=== PATIENT | male | born 1995 | race Hispanic/Latino ===

== ENCOUNTER 2022-01-16 08:21 | Emergency (ER) | payer BC, SELFPAY ==
--- NOTE | 2022-01-16 08:33 | ED.EXTPRO ---
HPI - Extremity Problem General Chief complaint: Unspecified Stated complaint: Left Arm Pain Time Seen by Provider: 01/16/22 08:33 Source: patient, RN notes reviewed and old records reviewed Mode of arrival: ambulatory Limitations: no limitations History of Present Illness HPI Narrative: 26-year-old male presents to the [facility] with left axilla discomfort for several weeks. Patient reports swelling. No redness. No streaking. Denies fevers. Related Data Allergies Allergy/AdvReac Type Severity Reaction Status Date / Time No Known Allergies Allergy Verified 01/16/22 08:25 Review of Systems Review of Systems: All systems reviewed & are unremarkable except as noted in HPI and below Constitutional: Constitutional: Reports no additional constitutional complaints, Denies chills and Denies fever(s) Eyes: Eyes: Reports no additional eye complaints ENT: Reports system reviewed and no additional complaints, except as documented Cardiovascular: Cardiovascular: Reports no additional cardiovascular complaints Respiratory: Respiratory: Reports no additional respiratory complaints Gastrointestinal: Gastrointestinal: Reports no additional gastrointestinal complaints Musculoskeletal: Musculoskeletal: Reports no additional musculoskeletal complaints Integumentary/Breasts: Skin/Breast: Reports as per HPI Neurologic: Reports system reviewed and no additional complaints, except as documented Psychiatric: Psychiatric: Reports no additional psychiatric complaints Allergic/Immunologic: Allergic/Immunologic: Reports no additional allergic/immunologic complaints PMFSH Comments At the time of my signature, I reviewed and agree with the nursing past medical, surgical, social, and family history. There is no relevant family history pertinent to the patient complaint. Exam Const: General: healthy appearing, no acute distress and alert Nutritional Appearance: well nourished Orientation/consciousness: patient oriented x3 Limitations: no limitations HENMT: Head: normal to inspection Ears: external ears normal, TM's normal bilaterally and EAC's normal General nose exam: Normal external nose present Eyes: General: appearance normal, both eyes and all related structures Conjunctivae: conjunctivae normal Pupils: Equal, round and reactive pupils present Neck: Neck: normal visual inspection, no lymphadenopathy and no meningeal signs Chest: Chest palpation & inspection: normal inspection of the chest Resp: Effort & Inspection: normal respiratory effort and no use of accessory muscles Auscultation: clear to auscultation bilaterally, no crackles, no rales, no rhonchi and no wheezes Cardio: Rate: regular rate Rhythm: regular rhythm Back/Spine/Pelvis: Cervical Spine: normal cervical lordosis Thoracic/Lumbar Spine: thoracic and lumbar spine normal to inspection Skin: General skin exam: normal color Rashes: no rashes Wounds: no wounds Other: Lymph node noted left axilla approximately 3 cm x 3 cm. Patient reports tender. Area is movable. No cellulitic changes in surrounding tissue Neuro: General: patient oriented x3, moves all extremities, no meningeal signs and no focal motor deficits Cranial nerves: Yes Equal, round and reactive pupils present Speech: normal speech Gait exam (Neuro): Normal gait present Extrem: General: normal to inspection, full ROM and capillary refill normal Psych: Appearance: grossly normal and well kempt Mental Status: mental status grossly normal Affect: normal affect Attitude: cooperative Thought content: Yes Normal thought content present Course Course Emergency Course: Discharge instructions reviewed with patient, as well as provided in writing per nursing staff. The instructions also include specific and strict return/GO TO THE ER as well as f/u information. All questions have been answered, and the patient deny any further questions with discharge and discharge plan. Some parts of this dict
[2022-01-16 08:34] VITALS: BP 144/92; PULSE 84; RESP 16; TEMP 36.1; O2SAT 99
== END 2022-01-16 08:58 | disposition home or self-care (01) ==
PROVIDERS: Emergency Provider Nurse Practitioner
DX: R59.0 Localized enlarged lymph nodes (principal)
CPT/HCPCS: 99213; G0463

== ENCOUNTER 2022-01-19 19:02 | Emergency (ER) | payer BC, SELFPAY ==
[2022-01-19 19:10] VITALS: BP 150/88; PULSE 112; RESP 16; TEMP 38.2; O2SAT 99
--- NOTE | 2022-01-19 19:23 | ED.URI ---
HPI - URI/Sore Throat General Chief Complaint: Upper Respiratory Infection Stated Complaint: body ache, chills, sore throat, fever Time Seen by Provider: 01/19/22 19:15 Source: patient and RN notes reviewed Mode of arrival: ambulatory Limitations: no limitations History of Present Illness HPI Narrative: 26-year-old male presented for complaint of intermittent fever, body aches and chills for about 3 days. He endorses sick contacts. Pt was seen at [facility] 3 days ago for c/o left axilla lymph node swelling and has been taking abx as directed without significant change in size of node. He is scheduled with new pcp in 4 days. Denies sore throat, chest pain, shortness of breath, wheezing, nausea, vomiting, diarrhea. Negative covid test at home today. MD elicited complaint: cough Related Data Allergies Allergy/AdvReac Type Severity Reaction Status Date / Time No Known Allergies Allergy Verified 01/19/22 19:07 Review of Systems Review of Systems: ROS negative except as in HPI Exam Narrative: GENERAL: well-appearing, EYES: conjunctivae clear ENT: Mucous membranes moist. TMs pearly allen with normal light reflex bilaterally; no tragal tenderness. Oropharynx erythematous without lesions or exudate, no drooling, no hoarseness, no trismus, uvula midline. NECK: Supple. No lymphadenopathy CHEST: Clear to auscultation, breath sounds equal. No wheezing, rhonchi, rales, or stridor. No respiratory distress, speaks in full sentences. HEART: Regular rate and rhythm. No murmur heard. SKIN: Warm, dry, no rash. Left axilla lymphadenitis, no induration or s/s infection NEURO: Alert and oriented x3. PSYCH: Normal mood and affect Course Course Emergency Course: Patient is aware of diagnosis, understands and agrees to treatment plan. Anticipatory guidance given. Patient agrees to follow-up as directed and is aware of reasons to seek care at the emergency department. Portions of this record may have been created with voice recognition software Level of Care: [facility] Visit Vital Signs Vital signs: Vital Signs Temperature 100.7 F H 01/19/22 19:10 Pulse Rate 112 H 01/19/22 19:10 Respiratory Rate 16 01/19/22 19:10 Blood Pressure 150/88 H 01/19/22 19:10 Pulse Oximetry 99 01/19/22 19:10 Oxygen Delivery Room Air 01/19/22 19:10 Temperature 100.7 F H 01/19/22 19:10 Pulse Rate 112 H 01/19/22 19:10 Respiratory Rate 16 01/19/22 19:10 Blood Pressure 150/88 H 01/19/22 19:10 Pulse Oximetry 99 01/19/22 19:10 Oxygen Delivery Room Air 01/19/22 19:10 reviewed MDM - URI/Sore Throat MDM Narrative Medical decision making narrative: influenza negative , advised supportive measures and signs/symptoms to go to the ER. Pt is appropriate for outpt treatment and f/u. Differential Diagnosis Differential diagnosis: Likely upper respiratory infection, sinusitis and viral infection Discharge Plan Discharge Clinical Impression: Viral infection Patient Disposition: Home, Self-Care Condition: Stable Instructions: Viral Syndrome (ED) Additional Instructions: Infulenza negative You should still avoid crowds until you are fever free for 24 hours without the use of fever reducing medications, or the symptoms are improved Rest. Drink plenty of fluids. Tylenol 1000mg every 8 hours as needed for pain/fever. Recommend Flonase spray and Zyrtec (or Claritin/Tarah) for sinus pressure/congestion over the counter Cough syrup may cause drowsiness; avoid driving or take it at night time. Follow up with your primary care provider as scheduled Go to the ER for worsening symptoms or concerns Prescriptions: No Action doxycycline monohydrate 100 mg capsule 100 mg PO BID Qty: 14 0RF Follow-up/Referrals: PHYSICIAN,PROJECT ACCOUNT MANAGER [Primary Care Provider] - Time of Disposition: 19:40
== END 2022-01-19 19:52 | disposition home or self-care (01) ==
PROVIDERS: Emergency Provider Nurse Practitioner Family
DX: B34.9 Viral infection, unspecified (principal)
CPT/HCPCS: 87804; 99212; G0463

== ENCOUNTER → 2022-03-23 14:52 | Outpatient (CLI) | payer BC, SELFPAY ==
--- NOTE | ~2022-03-23 | US_ITS ---
US scrotum doppler INDICATION: Left testicular pain TECHNIQUE: Testicular sonogram utilizing grayscale and color Doppler FINDINGS: The testes are normal in size and appearance. No focal lesions are seen. The right testes measures 3.7 x 2.2 x 3.2 cm centimeters, and the left testis measures 4.5 x 2.2 x 3.4 cm cm. There is normal vascular flow to both testes. The right and left epididymides appear normal. Small bilateral hydroceles. There is a left varicocele. IMPRESSION: 1. Left varicocele. 2: Small hydroceles. Reviewed, dictated and finalized at location A. ISSIONS COORDINATOR
== END ==
LOC: EXPGOSHRAD 14:53
PROVIDERS: PCP Emergency Medicine; Visit Provider Emergency Medicine
DX: N50.812 Left testicular pain (principal); I86.1 Scrotal varices; N43.3 Hydrocele, unspecified
CPT/HCPCS: 76870; 93976

== ENCOUNTER 2023-03-10 11:33 | Emergency (ER) | payer BC, SELFPAY ==
[2023-03-10 11:48] VITALS: BP 128/82; PULSE 95; RESP 16; TEMP 36.8; O2SAT 99
--- NOTE | 2023-03-10 12:32 | ED.URI ---
HPI - URI/Sore Throat General Chief Complaint: Upper Respiratory Infection Stated Complaint: sore throat,sinus pressure,backache Time Seen by Provider: 03/10/23 11:50 Source: patient Mode of arrival: ambulatory Limitations: no limitations History of Present Illness HPI Narrative: Kadeem is a 27-year-old male patient presenting to the clinic today with complaints sore throat, sinus congestion, sinus pressure, and low back ache. He reports the symptoms have been going on for approximately 3 days. He denies any known fever or chills. States his family also is sick at home with similar symptoms. MD elicited complaint: sore throat and nasal congestion Related Data Allergies Allergy/AdvReac Type Severity Reaction Status Date / Time No Known Allergies Allergy Verified 03/10/23 11:39 Review of Systems Review of Systems: Pertinent positives per HPI. Patient denies any fever, chills, rash, headache, visual changes, dizziness, cough, shortness of breath, chest pain, palpitations, nausea, vomiting, diarrhea, constipation, abdominal pain, or any urinary issues. [facility], [facility] Social History Social History (Updated 03/20/22 @ 15:57 by Johanne Miller [facility]) Smoking status: Never smoker Lack of Transportation: No Lack of Food: Sometimes True Current Housing: I Have Housing Concerned About Future Housing: No Difficulty Paying Gas/Electric Bills: No Difficulty Paying for Meds: No Currently Unemployed: No Education: High School Diploma/GED Comments At the time of my signature, I reviewed and agree with the nursing past medical, surgical, social, and family history. There is no relevant family history pertinent to the patient complaint. Exam Narrative: General: Well-developed, well nourished, in no apparent distress Head: Normocephalic, atraumatic Eyes: Pupils equally round and reactive to light bilaterally, EOM intact, sclera and conjunctive clear, no discharge, lids normal Ears: TMs intact and clear, ear canals clear, no drainage, grossly hearing normal. Nose: Nares patent, clear discharge, mild inflammation, no sinus tenderness. Mouth: Oral pharynx red without lesions or masses, good dentition, MMM. Postnasal drip Neck: Supple, trachea midline, no enlargement of anterior or posterior cervical nodes, no thyroid masses or goiter palpable. Cardio: Regular rate and rhythm, s1 and s2 normal, no murmur appreciated. Resp: Clear to auscultation bilaterally, no rhonchi, rales, wheezing or rubs Course Course Emergency Course: Portions of this record may have been created with voice recognition software. Level of Care: Express Care Visit Vital Signs Vital signs: Vital Signs Temperature 36.8 C 03/10/23 11:48 Pulse Rate 95 03/10/23 11:48 Respiratory Rate 16 03/10/23 11:48 Blood Pressure 128/82 03/10/23 11:48 Pulse Oximetry 99 03/10/23 11:48 Oxygen Delivery Room Air 03/10/23 11:48 Temperature 36.8 C 03/10/23 11:48 Pulse Rate 95 03/10/23 11:48 Respiratory Rate 16 03/10/23 11:48 Blood Pressure 128/82 03/10/23 11:48 Pulse Oximetry 99 03/10/23 11:48 Oxygen Delivery Room Air 03/10/23 11:48 Vital signs reviewed MDM - URI/Sore Throat MDM Narrative Medical decision making narrative: At the time of visit patient is resting comfortably on the exam table. Strep, COVID, and influenza testing were all negative in the clinic today. We will send strep for culture. I suspect patient has URI/viral pharyngitis. Supportive measures were discussed with the patient he voiced understanding discharge instructions and agrees to treatment plan. Differential Diagnosis Differential diagnosis: Likely upper respiratory infection, otitis media, sinusitis, viral infection, bronchitis, influenza, pharyngitis and other (COVID) Lab Data Labs: Lab Results 03/10/23 Range/Units 12:20 POC SARS CoV-2 Ag Negative (Negative) Influenza A Screen Negative
== END 2023-03-10 12:44 | disposition home or self-care (01) ==
PROVIDERS: Emergency Provider Nurse Practitioner Family; PCP Emergency Medicine
DX: J06.9 Acute upper respiratory infection, unspecified (principal); B34.9 Viral infection, unspecified; Z20.822 Contact with and (suspected) exposure to COVID-19
CPT/HCPCS: 87081; 87426; 87804; 87880; 99213; C9803; G0463

== ENCOUNTER 2023-05-01 10:28 | Emergency (ER) | payer BC, SELFPAY ==
[2023-05-01 10:49] VITALS: BP 124/91; PULSE 89; RESP 20; TEMP 37.2; O2SAT 99
--- NOTE | 2023-05-01 11:19 | ED.URI ---
HPI - URI/Sore Throat General Chief Complaint: Upper Respiratory Infection Stated Complaint: fever,headache, +COVID exposure Time Seen by Provider: 05/01/23 11:19 Source: patient Mode of arrival: ambulatory Limitations: no limitations History of Present Illness HPI Narrative: 27-year-old male presents with complaint nasal congestion, postnasal drainage, mild cough, fatigue and body aches for 2 days. Afebrile. Reports COVID exposure. No chest pain or shortness of breath. All systems reviewed and negative except as noted above. Related Data Home Medications Medication Instructions Recorded Confirmed No Home Medications 05/01/23 05/01/23 Allergies Allergy/AdvReac Type Severity Reaction Status Date / Time No Known Allergies Allergy Verified 05/01/23 10:49 Review of Systems Review of Systems: CONSTITUTIONAL: Denies fever, chills, or sweats. reports fatigue. EYES: Denies visual changes, redness, or discharge. ENT: Reports rhinorrhea, congestion, sore throat. Denies otalgia. CARDIOVASCULAR: Denies chest pain, palpitations, or edema. RESPIRATORY: reports cough. Denies dyspnea. GASTROINTESTINAL: Denies abdominal pain, nausea, vomiting, or diarrhea. GENITOURINARY: Denies dysuria or hematuria. SKIN: Denies rash or itching. MUSCULOSKELETAL: Denies back pain, joint pain, or myalgia. NEUROLOGIC: Denies headache, numbness, or weakness. PSYCHIATRIC: Denies anxiety or depression. All other systems reviewed are negative, except as documented in HPI. PMFSH Social History Social History (Updated 03/20/22 @ 15:57 by Johanne Miller A, RMA) Smoking status: Never smoker Lack of Transportation: No Lack of Food: Sometimes True Current Housing: I Have Housing Concerned About Future Housing: No Difficulty Paying Gas/Electric Bills: No Difficulty Paying for Meds: No Currently Unemployed: No Education: High School Diploma/GED Comments At time of signature, agree with nursing past medical, surgical, social and family history. There is no relevant family history pertinent to the presenting complaint. Exam Narrative: GENERAL: This is a well-nourished, well-developed patient, in no apparent distress. HEAD: normocephalic, atraumatic. EYES: PERRL. Sclera clear/white. Vision is grossly intact. EARS: External ears normal, auditory canals clear and without drainage, TMs normal without perforation. Hearing grossly intact. NOSE: External nose normal with Clear nasal drainage, mild erythema to nares. THROAT: Mucous membranes moist, posterior pharynx clear. NECK: Neck supple, non-tender without lymphadenopathy, masses or thyromegaly. CARDIOVASCULAR: Regular rate and rhythm without murmurs, gallops, or rubs. RESPIRATORY: Clear to auscultation. Breath sounds equal bilaterally. No wheezes, rales, or rhonchi. SKIN: warm, Dry, intact with no suspicious lesions or rash, good texture and turgor. NEURO: awake, alert, and oriented to person, place and time. There were no obvious focal neurologic abnormalities. EXTREMITIES: No joint tenderness, effusion, or edema noted. Course Course Level of Care: Express Care Visit Vital Signs Vital signs: Vital Signs Temperature 37.2 C 05/01/23 10:49 Pulse Rate 89 05/01/23 10:49 Respiratory Rate 20 05/01/23 10:49 Blood Pressure 124/91 H 05/01/23 10:49 Pulse Oximetry 99 05/01/23 10:49 Oxygen Delivery Room Air 05/01/23 10:49 Temperature 37.2 C 05/01/23 10:49 Pulse Rate 89 05/01/23 10:49 Respiratory Rate 20 05/01/23 10:49 Blood Pressure 124/91 H 05/01/23 10:49 Pulse Oximetry 99 05/01/23 10:49 Oxygen Delivery Room Air 05/01/23 10:49 Reviewed MDM - URI/Sore Throat MDM Narrative Medical decision making narrative: Patient is aware of diagnosis, understands and agrees to treatment plan. Anticipatory guidance given. Patient agrees to follow-up as directed and is aware of reasons to seek care at the emergency departmen
== END 2023-05-01 11:28 | disposition home or self-care (01) ==
PROVIDERS: Emergency Provider Nurse Practitioner Family; PCP Emergency Medicine
DX: U07.1 COVID-19 (principal)
CPT/HCPCS: 87426; 87804; 99213; C9803; G0463

== ENCOUNTER 2023-10-17 11:50 | Outpatient (CLI) | payer BC, SELFPAY ==
--- NOTE | ~2023-10-17 | XR_ITS ---
PA, oblique, and lateral views of the right thumb CLINICAL HISTORY: Pain FINDINGS: No acute fracture or dislocation seen. Joint spaces are intact. Soft tissues are unremarkab le. IMPRESSION: Unremarkable exam. Reviewed, dictated and finalized at location M. IMPRESSION: Unremarkable exam.
--- NOTE | ~2023-10-17 | XR_ITS ---
XR knee RT 3V 10/17/2023 12:07 Indication: Right knee pain Procedure: 3 views right knee Comparison: No prior studies Findings: No fracture, subluxation or dislocation. No significant joint effusion. No foreign bodies. Impression: 1: No significant bone or joint abnormality. Reviewed, dictated and finalized at location B. Impression: 1: No significant bone or joint abnormality.
== END 2023-10-17 11:51 ==
LOC: GOSHIMG 11:53
PROVIDERS: PCP Emergency Medicine; Visit Provider Nurse Practitioner Family
DX: M79.644 Pain in right finger(s) (principal); S89.90XA Unspecified injury of unspecified lower leg, initial encounter; X58.XXXA Exposure to other specified factors, initial encounter
CPT/HCPCS: 73140; 73562

== ENCOUNTER 2023-10-23 14:19 | Outpatient (CLI) | payer BC, SELFPAY ==
--- NOTE | ~2023-10-23 | MR_ITS ---
EXAMINATION: MR knee RT wo con DATE: 10/23/2023 14:49 INDICATION: Unspecified injury of the right knee presenting with weakness, anterolateral right knee p ain and limited range of motion TECHNIQUE: Magnetic resonance imaging (MRI) of the right knee was performed without intravenous contr ast. Sequences included coronal PD-weighted FSE, coronal PD-weighted FS FSE, sagittal T2-weighted FS E, sagittal PD-weighted FS FSE and axial PD weighted fat saturated FSE. COMPARISON: None. FINDINGS: Medial compartment: Medial meniscus is normal. Articular cartilage is normal. Lateral compartment: Lateral meniscus is normal. Articular cartilage is normal. Patellofemoral compartment: Articular cartilage is normal. Ligaments and tendons: Anterior and posterior cruciate ligaments are normal. The medial collateral ligament and fibular tesha ateral ligament complex are normal. The extensor mechanism is normal. The visualized medial and later al hamstring tendons as well as the iliotibial band are normal. Fluid: Physiologic amount of fluid in the joint space. No loose osteochondral bodies identified. Osseous/other: There are subtle marrow edema at the posterolateral aspect of the proximal tibia along its articulati on with the proximal fibula without evident fracture line which in the setting of recent trauma sugge sts a bone contusion there is diffuse mild thickening and mild increased signal of the anterior and p osterior ligaments of the fibular head without discrete discontinuity consistent with low-grade sprai ns. No fracture or pathologic marrow replacing process. IMPRESSION: 1. Likely low-grade sprains of the anterior and posterior ligaments of the fibular head and mild bone contusion at the proximal tibia along its articulation with the fibular head. 2. Normal cartilage, menisci and stabilizing cruciate and collateral ligaments of the knee. Reviewed, dictated and finalized at location A. IMPRESSION: 1. Likely low-grade sprains of the anterior and posterior ligaments of the fibu lar head and mild bone contusion at the proximal tibia along its articulation w ith the fibular head. 2. Normal cartilage, menisci and stabilizing cruciate and collateral ligaments of the knee.
== END 2023-10-23 14:20 ==
PROVIDERS: PCP Nurse Practitioner Family; Visit Provider Nurse Practitioner Family
DX: S89.81XA Other specified injuries of right lower leg, initial encounter (principal)
CPT/HCPCS: 73721

== ENCOUNTER 2024-11-05 14:03 | Outpatient (CLI) | payer BC, SELFPAY ==
--- NOTE | ~2024-11-05 | XR_ITS ---
Right Shoulder Technique: AP and scapular Y views were obtained. Clinical History: Pain Findings: No fracture or dislocation is seen. Osseous alignment is anatomic. The glenohumeral and acr omioclavicular joint spaces are preserved. Soft tissues are unremarkable. Impression: Unremarkable right shoulder radiographs. Reviewed, dictated and finalized at [facility]. Impression: Unremarkable right shoulder radiographs.
== END 2024-11-05 14:04 | disposition home or self-care (01) ==
PROVIDERS: PCP Student in an Organized Health Care Education/Training Program; Visit Provider Student in an Organized Health Care Education/Training Program
DX: M25.511 Pain in right shoulder (principal)
CPT/HCPCS: 73030